=== PATIENT | male | born 1950 | race Caucasian/White ===

== ENCOUNTER → 2020-07-24 | Outpatient (CLI) | payer MEDICARE ==
--- NOTE | 2020-07-24 10:29 | XR ---
EXAMINATION TYPE: XR cervical spine limited DATE OF EXAM: 07/24/2020 COMPARISON: NONE HISTORY: Pain TECHNIQUE: Four views are submitted. FINDINGS: The odontoid is intact. There are no compression deformities. The prevertebral soft tissue structur es are within normal limits. There is degenerative disc disease and posterior spondylosis at C3 5-6 and C6-C7. Anterior hypertrophic spurring. Slight anterolisthesis of C4 on C5. IMPRESSION: 1. Moderate to severe degenerative disc disease C5-6 and C6-C7. Consider follow-up MRI.
--- NOTE | 2020-07-24 10:29 | XR ---
EXAMINATION TYPE: XR thoracic spine complete DATE OF EXAM: 07/24/2020 COMPARISON: NONE HISTORY: Pain TECHNIQUE: 3 views submitted FINDINGS: Alignment is anatomic. There is no compression deformities. Vertebral body height and disc interspa adam are maintained. Curvature of the spine with severe multilevel degenerative disc disease. IMPRESSION: 1. Scoliosis with multilevel severe degenerative disc disease
== END | disposition home or self-care (01) ==
LOC: RADXRMAIN 09:47
PROVIDERS: ATTEND Family Medicine
DX: M41.84 Other forms of scoliosis, thoracic region (principal); M51.34 Other intervertebral disc degeneration, thoracic region; M50.323 Other cervical disc degeneration at C6-C7 level
CPT/HCPCS: 72040; 72072

== ENCOUNTER → 2020-08-10 | Outpatient (CLI) | payer MEDICARE ==
--- NOTE | 2020-08-10 14:58 | MR ---
MRI CERVICAL SPINE: CLINICAL HISTORY: Disc degeneration TECHNIQUE: Multiplanar, multisequence imaging of the cervical spine and thoracic is performed without contrast COMPARISON: Plain film 07/24/2020 FINDINGS: Sagittal images of the cervical spine show the craniocervical junction to appear within nor mal limits. The cervical and upper thoracic spinal cord is normal in course, caliber, and signal. V ertebral alignment is anatomic. The bone marrow signal intensity is within normal limits. There is sp ondylosis present at C5-6, C6-7 with associated loss of disc height. Axial images show there is no significant focal disk disease, spinal canal stenosis, neural foraminal narrowing, or spinal cord compromise with exception at C5-6 there is some foraminal encroachment due to uncovertebral joint hypertrophy, C6-7 shows left-sided foraminal encroachment due to uncovertebra l joint hypertrophy, posterior extension endplate disc complex at these levels causes mild anterior m ass effect on the thecal sac.. IMPRESSION: Mild degenerative disc disease, no significant spinal stenosis Thoracic spine MRI: There is a spinal curvature present. There is no significant spinal stenosis. Tho racic vertebral bodies show preserved height. Multilevel spondylosis with endplate discogenic marrow signal changes are present. At T9 there is hemangioma noted incidentally. No significant foraminal en croachment. Mild multilevel posterior disc bulges causes slight anterior mass effect on the thecal sa c. Thoracic cord signal is normal. IMPRESSION: There is an underlying scoliosis, degenerative disc disease. No sizable disc herniation o r significant spinal stenosis.
== END | disposition home or self-care (01) ==
LOC: RADMRIMAIN 08:08
PROVIDERS: ATTEND Nurse Practitioner Family
DX: M47.812 Spondylosis without myelopathy or radiculopathy, cervical region (principal); M50.30 Other cervical disc degeneration, unspecified cervical region; M51.34 Other intervertebral disc degeneration, thoracic region; M41.84 Other forms of scoliosis, thoracic region
CPT/HCPCS: 72141; 72146

== ENCOUNTER 2021-08-06 08:43 | Day surgery (SDC) | payer MEDICARE ==
--- NOTE | 2021-08-06 08:12 | P.GSHP ---
History of Present Illness H&P Date: 08/06/21 CHIEF COMPLAINT: Colon screen HISTORY OF PRESENT ILLNESS: The patient is a 71-year-old male who presents for colon screen. Lower endoscopy was offered for further evaluation and management. PAST MEDICAL HISTORY: Please see list. PAST SURGICAL HISTORY: Please see list. MEDICATIONS: Please see list. ALLERGIES: Please see list. SOCIAL HISTORY: No illicit drug use FAMILY HISTORY: No reports of Crohn disease or ulcerative colitis. REVIEW OF ORGAN SYSTEMS: CONSTITUTIONAL: No reports of fevers or chills. PHYSICAL EXAM: VITAL SIGNS: Stable GENERAL: Well-developed pleasant in no acute distress. HEENT: No scleral icterus. Extraocular movements grossly intact. Moist buccal mucosa. NECK: Supple without lymphadenopathy. CHEST: Unlabored respirations. Equal bilateral excursions. CARDIOVASCULAR: Regular rate and rhythm. Distal 2+ pulses. ABDOMEN: Soft, nontender, nondistended. MUSCULOSKELETAL: No clubbing, cyanosis, or edema. ASSESSMENT: 1. Colon screen. PLAN: 1. Recommend proceeding with a lower endoscopy
[2021-08-06] MEDS ORDERED: LACTATED RINGERS 1,000 ML IV ONE (09:05)
[2021-08-06 09:09] VITALS: TEMP 96.8
[2021-08-06] MEDS ORDERED: PROPOFOL 10 MG/ML 20 ML VIAL IV ONE (09:41)
[2021-08-06 10:05] VITALS: BP 107/68; PULSE 73; RESP 16
--- NOTE | 2021-08-06 10:08 | P.PCN ---
Date of Procedure: 08/06/21 Description of Procedure: PREOPERATIVE DIAGNOSIS: Colonoscopy screening. POSTOPERATIVE DIAGNOSIS: Colonoscopy screening. Diverticulosis, scattered. OPERATION: Colonoscopy to the cecum, ileocecal valve and appendiceal orifice. SURGEON: Princess Skaggs MD. ANESTHESIA: MAC. INDICATIONS: The patient is a 71-year-old female who presents for colonoscopy screening. Last colonoscopy over 10 years ago. Benefits and risks were described and informed consent was obtained. DESCRIPTION OF PROCEDURE: The patient had undergone Sutab prep. The patient had been brought into the operating room and laid in the left lateral decubitus position. After adequate intravenous sedation, the rectum was examined with 2% lidocaine jelly. External hemorrhoids were encountered. The rectal tone was within normal limits. No lesions were palpated in the rectal vault. An Olympus colonoscope was advanced until the cecum, ileocecal valve and appendiceal orifice were clearly viewed. The prep was excellent. Scattered diverticulosis was encountered. No colonic polyps were found. No evidence of focal colitis was found. Retroflexion of the scope demonstrated grade 1 internal hemorrhoids without active bleeding or inflammation. The colon was desufflated. The patient had tolerated the procedure well. Withdrawal time was over 6 minutes. FINDINGS: Aronchick preparation quality scale (1-5) Internal hemorrhoids, grade 1 External prolapsed hemorrhoids, grade 1 No arteriovenous malformations. No adenomatous polyps. No focal colitis. Scattered diverticula RECOMMENDATIONS: Lower endoscopy in 2031 Plan - Discharge Summary New Discharge Prescriptions: Continue No Known Home Medications Discharge Medication List No Known Home Medications 08/06/21 [History] Follow up Appointment(s)/Referral(s): Princess Skaggs MD [STAFF PHYSICIAN] - As Needed Patient Instructions/Handouts: Diverticulosis Diet (GEN), Diverticulosis (DC) Activity/Diet/Wound Care/Special Instructions: Repeat colonoscopy in 10 years, 2031 or Cologaurd Discharge Disposition: HOME SELF-CARE
== END 2021-08-06 10:37 | disposition home or self-care (01) ==
LOC: ORWHC2ENDO 08:43
PROVIDERS: ATTEND Surgery Plastic and Reconstructive Surgery
DX: Z12.11 Encounter for screening for malignant neoplasm of colon (principal); K57.90 Diverticulosis of intestine, part unspecified, without perforation or abscess without bleeding; Z80.0 Family history of malignant neoplasm of digestive organs
CPT/HCPCS: G0121; J2704

== ENCOUNTER → 2022-11-18 | Outpatient (CLI) | payer MEDICARE ==
--- NOTE | 2022-11-18 18:19 | CA ---
Exercise Stress Test Report Name: Lucas Wilkinson Exam Date: 11/18/2022 11:06 Exam Location: [facility] Stress Ht (in): 72 Wt (lb): 155 BSA: 1.91 Ordering Phys: Jose Wu MD Referring Phys: Yash Zhu DPM Technologist: Bobo Saavedra Age: 72 Gender: M : 1950 Procedure CPT: Indications: R94.31 ABNORMAL ELECTROCARDIOGRAM ICD-10 Codes: Patient History: Abnormal EKG Medications: Meds past 24 hrs: Pretest Chest Pain: STRESS TEST Moises Protocol Exercise Duration (min:sec): 10:[address] Depressions (mm): Angina Score: Mcbride Score: Resting HR (bpm): 74 Peak HR (bpm): 146 Resting BP (mmHg): 125 / 94 Peak BP (mmHg): 178 / 80 MPHR: 150 Target HR: 128 % MPHR: 97 METS: 11.9 Total Dose: Peak Dose: Atropine: Double Product: 80975 BP Response: Stress Termination: Reached target heart rate Stress Symptoms: No chest pain or symptoms Stress Summary: ECG ANALYSIS Resting ECG: Normal sinus rhythm, normal ECG heart rate 76 beats a minute Stress ECG: No significant ST-T wave changes diagnostic for ischemia by ST segment analysis. There were no ectopic beats or sustained arrhythmias CONCLUSIONS Excellent exercise tolerance for patient's age. Patient walked for 10 minutes 15 seconds achieving 11.9 METs Normal hemodynamic and clinical response to exercise Nonischemic ECG response to exercise Normal treadmill stress Dr Philip Hamilton (Electronically Signed) Final Date: 18 November 2022 18:18
== END | disposition home or self-care (01) ==
LOC: RADNMMAIN 10:09
PROVIDERS: ATTEND Family Medicine
DX: R00.1 Bradycardia, unspecified (principal); R94.31 Abnormal electrocardiogram [ECG] [EKG]
CPT/HCPCS: 93017

== ENCOUNTER 2022-11-25 11:36 | Day surgery (SDC) | payer MEDICARE ==
[2022-11-23 16:18] VITALS: BMI 20.9
[~2022-11-25 11:36] MED LIST: HYDROmorphone 0.5 MG/0.5 ML SYRINGE IVP PRN; LACTATED RINGERS 1,000 ML IV SCH; LIDOCAINE 1% (10MG/ML) FOR IV START INTRADERMA PRN; ONDANSETRON 4 MG/2 ML VIAL IVP ONE; Pre Op ABX Message 1 EACH MISC MISCELLANE ONE
[2022-11-25] MEDS ORDERED: LACTATED RINGERS 1,000 ML IV ONE (12:00)
[2022-11-25 12:27] VITALS: TEMP 96.8
[2022-11-25] MEDS ORDERED: PROPOFOL 10 MG/ML 20 ML VIAL IV ONE (13:05)
[2022-11-25] MEDS ORDERED: fentaNYL (PF) 50 MCG/ML 2 ML AMP ONE (13:05)
[2022-11-25] MEDS ORDERED: MIDAZOLAM 2 MG/2 ML VIAL ONE (13:05)
[2022-11-25] MEDS ORDERED: SODIUM CHLORIDE 0.9% 50 ML with ceFAZolin 2,000 MG IV ONE ×2 (13:09)
[2022-11-25] MEDS ORDERED: LIDOCAINE 1% INJ 10MG/ML (20 ML MDV) SQ ONE (13:14)
[2022-11-25] MEDS ORDERED: BUPIVACAINE (PF) 0.25% 30 ML VIAL SQ ONE (13:14)
[2022-11-25 13:53] VITALS: RESP 16
[2022-11-25 14:08] VITALS: BP 116/70; PULSE 68
--- NOTE | 2022-11-25 14:25 | P.OP ---
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 He was placed on the table in supine position. IV anesthetic agents and administered and local anesthesia was used to supplement anesthesia using a 1-1 dilution of 1% Xylocaine plain and 0.25% plain Sensorcaine. A total of 10 mL was used. Patient's left foot and ankle were then prepped and draped in the usual aseptic manner. Patient's left foot and ankle were then elevated and exsanguinated of blood utilizing an Esmarch bandage and after approximately an is. A time the ankle tourniquet to the patient's left ankle was inflated to approximately 250 mmHg. This point in time attention was directed to the dorsal aspect of the third i ntermetatarsal space of the patient's left foot where an approximately centimeters dorsal linear incision was made the incision was was deepened via sharp dissection down through the level of the subcutaneous tissue layers all neurovascular structures encountered were identified isolated and were retracted and any bleeding vessels were clamped electrocauterized as then carried deep down to the level of the transverse intermetatarsal ligament which was identified and incised sharply in line with the original skin incision. Exit was then carried deep in a white fibrous mass consistent with Villalpando's neuroma was identified it was dissected free proximally distally medially and laterally clamped and excised in total from the surgical site. The surgical site was flushed with copious amounts sterile saline solution and the site was inspected for any remaining portions of the neuroma. When this was seen to be of this far as any remaining portions subcutaneous tissues were coaptated and maintained utilizing 3-0 Vicryl simple interrupted suture the skin was then closed utilizing 4-0 nylon simple interrupted suture Adaptic Kerlix fluffs four- inch conformer 4 inch Coban was used to form a compression dressing and the ankle tourniquet to the patient's left ankle was deflated adequate hemostatic return was seen in all digits of the left foot specifically the third and fourth toes. The patient tolerated the surgery and anesthesia well was taken recovery room in good postoperative condition.
== END 2022-11-25 14:57 | disposition home or self-care (01) ==
LOC: OR 11:36
PROVIDERS: ATTEND Podiatrist Foot & Ankle Surgery
DX: G57.82 Other specified mononeuropathies of left lower limb (principal); F17.200 Nicotine dependence, unspecified, uncomplicated
CPT/HCPCS: 28080; J2250; J2405; J0690; J2001; J3010; J2704; J0665

== ENCOUNTER → 2024-08-02 | Outpatient (CLI) | payer MEDICARE ==
--- NOTE | 2024-08-02 09:14 | XR ---
EXAMINATION TYPE: XR lumbosacral spine 4 views DATE OF EXAM: 08/02/2024 8:51 AM COMPARISON: None CLINICAL INDICATION: Male, 74 years old with history of M54.32 sciatica; PHH, pain FINDINGS: Hypertrophic facet arthropathy mid to lower lumbar spine. Transitional lumbosacral segment. Baastrup' s disease lower lumbar spine. Moderate degenerative disc disease L5-S1. Degenerative grade 1 anteroli sthesis L3-L4. Mild to moderate degenerative disc disease and endplate spondylosis lower thoracic and upper lumbar spine. Vertebral body heights are preserved. IMPRESSION: 1. Hypertrophic facet arthropathy mid to lower lumbar spine. Degenerative grade 1 anterolisthesis L3- L4. 2. Accentuated lumbar lordosis with Baastrup's disease. 3. Moderate degenerative disc disease L5-S1. Mild to moderate within the lower thoracic and upper lum bar spine. [facility], , 08/02/2024 9:11 AM
== END | disposition home or self-care (01) ==
LOC: RADXRMAIN 08:34
PROVIDERS: ATTEND Family Medicine
DX: M47.816 Spondylosis without myelopathy or radiculopathy, lumbar region (principal); M43.16 Spondylolisthesis, lumbar region; M51.370 Other intervertebral disc degeneration, lumbosacral region with discogenic back pain only; M54.32 Sciatica, left side; M48.26 Kissing spine, lumbar region
CPT/HCPCS: 72110